=== PATIENT | male | born 1955 | race Caucasian/White ===

== ENCOUNTER 2024-10-28 11:50 | Emergency (ER) | payer MEDICARE, SELFPAY ==
[2024-10-28 11:52] VITALS: BMI 19.1
[2024-10-28 12:19] VITALS: BP 126/82; PULSE 93; RESP 18; TEMP 36.4; O2SAT 99
--- NOTE | 2024-10-28 12:24 | XR_ITS ---
Examination: CT abdomen and pelvis without contrast. Coronal 3-D reconstructions. Sagittal 2-D reconstructions. Date and time of exam:October 28, 2024 1235 hrs. Indications: Generalized abdominal pain today CTDI: vol (mGy): 6.28 DLP: (mGycm): 368 Technique: Axial images of the abdomen have been obtained, 3 mm slice thickness Intravenous contrast material has not been administered. Low dose protocols were performed. One or more of the following dose reduction techniques were used; automated exposure control, adjustment of the mA and/or KV according to patient size, use of iterative reconstruction technique. Findings: No focal liver or splenic lesion No gallstones No pancreatic mass Multiple bilateral renal calculi ranging in size from 2 to 6 mm Mild bilateral hydronephrosis, likely secondary to markedly distended urinary bladder, prostatomegaly and 11 mm calculus obstructing the prostatic urethra, sagittal image 90 There also is a 8mm calculus in the distal left ureter image 196 Normal appendix Aorta normal size No bowel obstruction Moderate osteopenia Impression: Bilateral hydronephrosis secondary to 11 mm calculus obstructing the prostatic urethra as well as 8 mm calculus distal left ureter
--- NOTE | 2024-10-28 12:25 | PD.EDRME ---
Rapid Medical Screening Exam RME Arrival date/time: 10/28/24 11:50 69-year-old male presents emergency department complains of constipation, difficulty urinating and abdominal pain ongoing since Monday Chief Complaint: Urogenital-Male Vital signs: Vital Signs Temperature 97.5 F 10/28/24 12:19 Pulse Rate 93 10/28/24 12:19 Respiratory Rate 18 10/28/24 12:19 Blood Pressure 126/82 10/28/24 12:19 Pulse Oximetry (%) 99 10/28/24 12:19 Oxygen Delivery Method Room Air 10/28/24 12:19
[2024-10-28 13:21] LABS: Basophils # (Auto) 0.1 Thou/mm3 (0.0-0.2); Basophils % (Auto) 0 % (0-2.5); Eosinophils % (Auto) 0 % (0-10); Hematocrit 47.4 % (41.0-53.0); Hemoglobin 16.5 g/dL (13.5-16.0); Immature Granulocytes % (Auto) 1 % (0-0); Immature Granulocytes Auto 0.08 Thou/mm3 (0.00-0.00); Lymphocytes % (Auto) 6 % (10-50); Mean Corpuscular HGB Conc 34.8 g/dl (31.0-37.0); Mean Corpuscular Hemoglobin 29.3 pg (25.0-35.0); Mean Corpuscular Volume 84 fL (80-100); Monocytes % (Auto) 6 % (0-12); Neutrophils % (Auto) 87 % (37-80); Nucleated Red Blood Cell % 0 /100 WBC (0); Platelet Count 305 Thou/mm3 (140-440); Red Blood Count 5.64 Miln/mm3 (4.50-5.90); White Blood Count 16.2 Thou/mm3 (3.8-10.6)
--- NOTE | 2024-10-28 13:30 | PC.NURSE ---
PT SEEN LEAVING ED LOBBY BY STAFF. RN ABLE TO SPEAK WITH PT'S BROTHER AND ASKED IF PT CAN COME BACK TO ED FOR PT EDUCATION REGARDING LEAVING AMA; PER PT'S BROTHER, NO, HE DOESN'T WANNA COME BACK INSIDE. PT LEFT AMA. MACHINE ADJUSTER MADE AWARE.
[2024-10-28 13:52] LABS: Alanine Aminotransferase 26 U/L (10-49); Albumin/Globulin Ratio 1.3 (1.2-2.2); Alkaline Phosphatase 168 U/L (46-116); Anion Gap 16 (7-16); Aspartate Amino Transferase 15 U/L (0-34); BUN/Creatinine Ratio 20 Ratio (12-20); Bilirubin,Total 0.9 mg/dL (0.3-1.2); Blood Urea Nitrogen 30 mg/dL (9-23); Calcium 9.6 mg/dL (8.3-10.6); Calcium (Corrected) 9.6 mg/dL (8.5-10.1); Carbon Dioxide 18.2 mMol/L (20.0-31.0); Chloride 92 mMol/L (98-107); Creatinine (Component) 1.5 mg/dL (0.6-1.3); Estimated Creatinine Clearance 44.5 mL/min (>60); Globulin 3.1 gm/dL (2.3-3.5); Lipase 23 U/L (12-53); Osmolality,Calculated 288 (275-295); Potassium 4.6 mMol/L (3.4-5.1); Sodium 126 mMol/L (136-145); Total Protein 7.1 gm/dL (5.7-8.2); eGFR 51 See Note
[2024-10-28 13:55] LABS: Glucose 627 mg/dL (74-106)
== END 2024-10-28 13:30 | disposition left against medical advice (07) ==
PROVIDERS: Nurse Practitioner Primary Care; Emergency Provider Emergency Medicine
DX: K59.00 Constipation, unspecified (principal); R10.9 Unspecified abdominal pain; R30.0 Dysuria; Z53.29 Procedure and treatment not carried out because of patient's decision for other reasons
CPT/HCPCS: 36415; 74176; 80053; 81001; 83690; 85025; 99281